=== PATIENT | male | born 1935 | race Caucasian/White ===

== ENCOUNTER 2017-01-05 08:28 | Day surgery (SDC) | payer MEDICARE, BC ==
[~2017-01-05] VITALS: Ht 190.5 cm; Wt 108.9 kg
--- NOTE | ~2017-01-05 | OP ---
PATIENT NAME: SATINDER MAHMOOD MEDICAL RECORD: [id number] :37 [facility] DATE: SURGEON: ISRAEL LUCIA MD DATE OF OPERATION: 01/05/2017 PREOPERATIVE DIAGNOSES: 1. Left great toe laceration, 7 cm in length, deep. 2. Right hip degenerative joint disease. POSTOPERATIVE DIAGNOSES: 1. Left great toe laceration, 7 cm in length, deep. 2. Right hip degenerative joint disease. PROCEDURE PERFORMED: 1. Left great toe excisional debridement, irrigation and then an excisional debridement of some skin and soft tissue below the skin, then irrigation and then closure of a 7 cm wound. 2. Injection under fluoroscopy of right hip with 1 cc Kenalog and 4 cc of Marcaine plain. CONDITION. He tolerated this well, was awakened and transferred to the recovery room in stable condition. INDICATIONS: This is a 81-year-old gentleman who initially presented for hip pain and for an injection under fluoroscopy. He had at the time of his visit noted that he has had stubbed his toe, but did not say much about it. On his presentation today, he was noted to have a completely opened 7 cm wound extending along the entire lateral side of his great toe from the anterior webspace cleared back to behind his great toe. This was very open with some necrotic edges of the wound. I discussed with him and felt in addition to injecting his hip, which was the initial, but he has needed this to be treated as well. We discussed risks, benefits, and alternatives including infection. He understood and wished to proceed. OPERATIVE REPORT: The patient was taken to the operating room and placed in supine position. General anesthesia was obtained. His right hip was prepped and under fluoro, injected with 1 cc of Kenalog and 4 cc of Marcaine plain. We then prepped and draped his left foot. He did receive 2 grams of Ancef. This wound was then debrided. I did excisional debridement of the soft tissues about the edges of the wound. I then irrigated and curetted deep. He did have some bleeders, which were cauterized. I then did a relatively loose closure, so that it could drain if necessary of this 7 cm laceration. He was placed in a soft dressing, a postop shoe. He was awakened and transferred to recovery room in stable condition, having tolerated the procedure well. TRANSINT:[id number] Voice Confirmation ID: [id number] DOCUMENT ID: [id number] OPERATIVE REPORT [id number] SATINDER MAHMOOD, ISRAEL EPSINOZA MD CC: [id number] DICTATION DATE: 01/05/17 115 METAL DEALER: 01/05/17 1719 [facility] 01/05/17 [place] [id number]
[2017-01-05 09:41] LABS: HEMATOCRIT 39.4 % (42.0-54.0); HEMOGLOBIN 12.7 g/dL (13.5-17.5); MCH 30.5 pg (26.0-34.0); MCHC 32.2 g/dL (31.0-37.0); MCV 94.5 fL (80.0-100.0); MEAN PLATELET VOLUME 9.9 fL (7.4-10.4); RBC 4.17 10x6/uL (4.20-6.10); RDW 13.8 % (11.5-14.5); WBC 6.3 10x3/uL (4.8-10.8)
[2017-01-05] MEDS ORDERED: CORDARONE200 MG PO (10:05)
[2017-01-05] MEDS ORDERED: ULTRAM50 MG PO (10:05)
[2017-01-05] MEDS ORDERED: CARDURA2 MG PO (10:05)
[2017-01-05] MEDS ORDERED: FUROSEMIDE20 MG PO (10:06)
[2017-01-05] MEDS ORDERED: PRINIVIL20 MG PO (10:06)
[2017-01-05] MEDS ORDERED: COUMADIN3 MG PO (10:06)
[2017-01-05] MEDS ORDERED: K-DUR20 MEQ PO (10:07)
[2017-01-05] MEDS ORDERED: NEURONTIN 300300 MG (10:07)
[2017-01-05] MEDS ORDERED: BUMEX2 MG PO (10:08)
[2017-01-05 10:11] VITALS: BP 129/73; Ht 190.5 cm; Wt 108.9 kg
[2017-01-05 10:13] LABS: APTT 53.1 SECONDS (22.8-39.4); INR 2.34 (0.85-1.17); PROTIME 25.8 SECONDS (11.6-15.0)
[2017-01-05 10:15] LABS: ANION GAP 10.5 mmol/L (8-16); CALCIUM 8.2 mg/dL (8.5-10.1); CARBON DIOXIDE 29.7 mmol/L (21.0-32.0); CREATININE - SERUM 1.6 mg/dL (0.6-1.3); POTASSIUM - SERUM 4.2 mmol/L (3.5-5.1)
--- NOTE | 2017-01-05 10:41 | NUR ---
INR OF 2.[address] [facility], NO NEW ORDERS RECEIVED
[2017-01-05] MEDS ORDERED: BACTRIM DS TABL1 TAB PO (11:54)
[2017-01-05] MEDS ORDERED: NORCO 7.5/325 T1 TA1 PO (11:54)
== END 2017-01-05 14:10 | disposition home or self-care (01) ==
LOC: D.OPS 08:28 → D.PAN 12:15 → D.OPS 14:10 → D.PAN 14:45 → D.OPS 14:45
PROVIDERS: Anesthesiology
DX: S91.112A Laceration without foreign body of left great toe without damage to nail, initial encounter (principal); I10 Essential (primary) hypertension; I48.91 Unspecified atrial fibrillation; M16.11 Unilateral primary osteoarthritis, right hip; Z01.812 Encounter for preprocedural laboratory examination